=== PATIENT | female | born 2000 | race Caucasian/White ===

== ENCOUNTER 2022-10-13 12:24 | Emergency (ER) | payer MEDICAID ==
[~2022-10-13] VITALS: Ht 170.2 cm; Wt 121.6 kg
[2022-10-13 12:30] VITALS: BP_SYST 156
--- NOTE | 2022-10-13 12:35 | NUR ---
N/V SINCE PRENTAMMY, " NOTHING HASNT WORKED" ALEKSANDRA STATED TO COME TO EMERGENCY ROM FOR IV THERAPY
[2022-10-13] MEDS ORDERED: ONDANSETRON HCL 4 MG/2 ML VIAL IVP ONE (13:00)
[2022-10-13] MEDS ORDERED: NACL 0.9% 1,000 ML IV ONE (13:00)
--- NOTE | 2022-10-13 13:07 | NUR ---
PT COMES IN TO ER WITH PAUL FROM HOME FOR UNCONTROLLED NAUSEA/VOMITTING. STATES SHE WAS DIAGNOSED WITH HYPERMESIS GRAVIDARUM YESTERDAY AT DR FERNANDES OFFICE VISIT. IS G-1,P-0 WAS SENT BY OB-COW TENDER MD FOR IV HYDRATION. PT IN NAD. RESP EVEN AND UNALBORED, ON RA @98%. DENIES ANY ABDOMINAL PAIN OR VAGINAL BLEEDING, ONLY SOME MILD ABD DISCOMFORT WITH VOMITTING. SKIN W/D/I, PALE IN COLOR, BUT PER PT, NORMAL FOR ETHNICITY. IV SLINSERTED AND IV FLUIDS INFUSING WELL. WILL CONT TO MONITOR. EMESIS BAG PROVIDED.
[2022-10-13 13:09] LABS: BASOPHILS # (AUTO) 0.1 K/uL (0.0-0.2); BASOPHILS % (AUTO) 0.4 % (0.0-2.0); EOSINOPHILS # (AUTO) 0.4 K/uL (0.0-0.4); HEMATOCRIT 36.6 % (36-48); HEMOGLOBIN 12.3 g/dL (12.0-16.0); LYMPHOCYTES % (AUTO) 14.6 % (20.5-51.5); MEAN CORPUSCULAR HEMOGLOBIN 32 pg (27-31); MEAN CORPUSCULAR HGB CONC 34 % (32-36); MEAN CORPUSCULAR VOLUME 94 fL (79.0-98.0); MONOCYTES % (AUTO) 6.9 % (1.7-9.3); NEUTROPHILS # (AUTO) 10.5 K/uL (1.8-7.7); NEUTROPHILS % (AUTO) 75.1 % (40.0-70.0); PLATELET COUNT (AUTO) 165 K/uL (130-430); RED BLOOD CELL COUNT(AUTO) 3.89 MIL/uL (4.2-6.2); RED CELL DISTRIBUTION WIDTH 13.2 % (9.0-15.0); WHITE BLOOD COUNT (AUTO) 13.9 K/uL (4.8-10.8)
[2022-10-13 13:29] LABS: CALCIUM 8.9 mg/dL (8.4-11.0); CREATININE 0.41 mg/dL (0.55-1.30)
[2022-10-13 13:34] LABS: ALBUMIN 2.7 g/dL (3.4-4.8); TOTAL BILIRUBIN 0.7 mg/dL (0.0-1.0)
[2022-10-13] MEDS ORDERED: ONDA-8 TL (13:38)
[2022-10-13 13:59] LABS: BILIRUBIN,URINE NEGATIVE (NEGATIVE); BLOOD, URINE NEGATIVE (NEGATIVE); CLARITY/URINE CLEAR (CLEAR); COLOR,URINE YELLOW (YELLOW); GLUCOSE,URINE NEGATIVE (NEGATIVE); KETONES,URINE NEGATIVE (NEGATIVE); LEUKOCYTE ESTERASE ,URINE 2+ (NEGATIVE); NITRITE, URINE NEGATIVE (NEGATIVE); PROTEIN URINE NEGATIVE (NEGATIVE); UROBILINOGEN,URINE 0.2 (0.2-1.0)
[2022-10-13 14:06] VITALS: BP_SYST 122
--- NOTE | 2022-10-13 14:08 | NUR ---
Patient given written and verbal discharge instructions and verbalizes understanding. ER MD discussed with patient the results and treatment provided. Patient in stable condition. ID arm band removed. IV catheter removed intact and dressing applied, no active bleeding. Rx of ondansetron given. Patient educated on pain management and to follow up with PMD. Pain Scale 0. Opportunity for questions provided and answered. Medication side effect fact sheet provided.
[2022-10-13 15:13] LABS: BACTERIA,URINE FEW /HPF (None Seen); RBC,URINE 0-3 /HPF (0-3)
== END 2022-10-13 14:10 | disposition home or self-care (01) ==
LOC: SED 12:24
DX: O21.0 Mild hyperemesis gravidarum (principal); Z3A.20 20 weeks gestation of pregnancy; Z79.899 Other long term (current) drug therapy
CPT/HCPCS: 99283; 96374; 96361; 80053; 85025; 87086; 36415; 81003; 81000; J2405; J7030